=== PATIENT | female | born 1960 | race Caucasian/White ===

== ENCOUNTER → 2016-10-29 | Outpatient (CLI) | payer OTHER ==
[~2016-10-29] MED LIST: ACETAMINOPHEN-1 EAC1 PO; ADIPEX-P37.5 M1 PO; IBUPROFEN 800800 MG PO; MIGRAINE MEDICINE; NORCO 5-325 TA1 EACH PO; PRILOSEC 20 MG20 MG PO; TOPAMAX50 MG PO
--- NOTE | ~2016-10-29 | S ---
[facility] [employer] [place] [address] SURGICAL PATH RPT PROCEDURE Name: CLEO FAY OSWALD Room #: REG [facility] M.R.#: [id number] Admission: 10/29/16 Date of : 58 Discharge: Report #: [id number] Path Case #: [id number] PATHOLOGY REPORT COLLECTION DATE: 10/29/2016 RECEIVED DATE: 10/29/2016 SUBMITTING PHYS: Dr. Yefri Persaud OTHER PHYS: Dr Lea Matthews SPECIMEN(S) RECEIVED: A.Polyp at rectum * * * * * * * * * * * * FINAL DIAGNOSIS: Polyp, at rectum, endoscopic biopsy: - Hyperplastic polyp. - Negative for dysplasia. (IUV:csd; d/t: 10/30/2016) PATHOLOGIST: Marizol Cain M.D. REPORT ELECTRONICALLY SIGNED BY: Marizol Cain M.D. DATE/TIME: 10/30/2016 13:23 * * * * * * * * * * * * GROSS PATHOLOGY: Received in formalin labeled "Cleo Fay, polyp at rectum," are two segments of gayle soft tissue measuring 0.5 x 0.5 x 0.1 cm in aggregate dimensions and ranging from 0.3 to 0.5 cm in maximum dimension. The specimen is submitted entirely in cassette A1. (CAA; 10/29/2016) CLINICAL HISTORY: Screening INITIAL CPT CODE(S): A; 71356 Professional services performed by [facility] at [facility] [address], [place] [address] Technical services performed by [facility] at [address] [place] [address], [address] [address]. [facility] [address] [place] [address] SURGICAL PATH RPT PROCEDURE Name: CLEO FAY OSWALD Room #: REG MICHAEL Padilla#: [id number] Admission: 10/29/16 Date of : 58 Discharge: Report #: [id number] Path Case #: [id number] [facility] [address] [address] PHONE: [phone] DIRECTOR: Ishan Fermin M.D. * * * END OF REPORT * * *
--- NOTE | ~2016-10-29 | P ---
[facility] [place] [address] PROCEDURE REPORT Name: VADIM CADET [facility]WALD [id number] Admission: 10/29/16 Attend Phys: Yefri Tian Discharge: Date of : 58 Report #: [id number] THIS REPORT FOR: //name// CC: Yefri Matthews MD DATE OF SERVICE: 10/29/2016 PROCEDURE PERFORMED: Colonoscopy with biopsies. HISTORY OF PRESENT ILLNESS: The patient is a 56-year-old female who presents today for a routine screening colonoscopy. She denies any symptoms. No family history of colon cancer. DESCRIPTION OF PROCEDURE: The risks and benefits of the procedure were explained to the patient, those risks including but not limited to bleeding, perforation and the risk of sedation. She understood these risks and gave informed consent. Sedation was given using propofol per anesthesia. Next, a digital rectal exam was initially performed, which was normal. Next, using a standard Fujinon colonoscope, the scope was placed in the patient's anus and advanced under direct vision to the cecum. The overall prep was excellent. The cecum and ileocecal valve were normal in appearance. Terminal ileum was intubated and normal in appearance. The ascending, transverse, descending and sigmoid colon were normal. In the rectum, there was a single 4-mm sessile polyp. This was removed with cold forceps, otherwise normal. On retroflexion, no abnormalities were noted. The scope was then withdrawn and the procedure terminated. The patient tolerated the procedure well. IMPRESSION: 1. Rectal polyp. 2. Otherwise, normal colonoscopy. RECOMMENDATIONS: 1. Await biopsy results. 2. If polyp is hyperplastic, repeat in 10 years; if adenomatous polyp, repeat in 5 years. Thank you for allowing me to participate in her care. <ELECTRONICALLY SIGNED> By: Yefri Persaud MD 10/29/16 1120 [id number] [id number] Yefri Persaud MD /nt
== END | disposition home or self-care (01) ==
LOC: GI 07:50
DX: Z12.11 Encounter for screening for malignant neoplasm of colon (principal); K62.1 Rectal polyp
CPT/HCPCS: 62110

== ENCOUNTER → 2017-11-07 | Outpatient (CLI) | payer OTHER | LOC: SLEEPLAB 10-25 08:26 | DX: G47.33 Obstructive sleep apnea (adult) (pediatric) (principal) ==

== ENCOUNTER → 2017-11-08 | Outpatient (CLI) | payer OTHER | LOC: CV 08:05 | DX: R91.1 Solitary pulmonary nodule (principal); J98.11 Atelectasis; R91.8 Other nonspecific abnormal finding of lung field ==

== ENCOUNTER → 2017-11-15 | Outpatient (CLI) | payer OTHER ==
--- NOTE | ~2017-11-15 | 2DMMODE ---
[facility] [address] [place] [address] 2 D/M-MODE ECHOCARDIOGRAM Name: CHICHIVADIM OSWALD Room #: REG [facility].#: [id number] Admission: 11/15/17 Attend Phys: Zee Owen Discharge: Date of : 58 Date of Service: 11/15/17 1216 Report #: [id number] THIS REPORT FOR: //name// APPROVED REPORT Study performed: 11/15/2017 11:21:25 EXAM: Comprehensive 2D, Doppler, and color-flow Echocardiogram Patient Location: Out-Patient Room #: Echo lab Status: routine BSA: 2.29 HR: 77 bpm BP: 138/82 mmHg Other Information Study Quality: Fair Indications Dyspnea Morbid obesity 2D Dimensions RVDd: 34.17 mm LVEF(%): 54.77 (>50%) IVSd: 11.01 (7-11mm) LVOT Diam: 19.87 (18-24mm) LVDd: 52.02 mm PWd: 10.82 (7-11mm) Ascending Ao: 32.32 (22-36mm) LVDs: 37.14 (25-40mm) Aortic Root: 32.84 mm Bray's LVEF: 54.77 % Volumes Left Atrial Volume (Systole) Single Plane 4CH: 40.64 mL Single Plane 2CH: 40.16 mL LA ESV Index: 20.00 mL/m2 Aortic Valve AoV Peak Bernardo.: 1.59 m/s AO Peak Gr.: 10.08 mmHg LVOT Max P.92 mmHg LVOT Max V: 0.99 m/s SHERIDAN Vmax: 1.93 cm2 Mitral Valve E/A Ratio: 1.2 MV Decel. Time: 174.47 ms [facility] [place] [address] 2 D/M-MODE ECHOCARDIOGRAM Name: VADIM CADET [facility] Room #: REG [facility].#: [id number] Admission: 11/15/17 Attend Phys: Zee Owen Discharge: Date of : 58 Date of Service: 11/15/17 1216 Report #: [id number] E Max Bernardo.: 0.84 m/s MV A Bernardo.: 0.72 m/s MV PHT: 50.60 ms IVRT: 73.82 ms Pulmonary Valve PV Peak Bernardo.: 0.95 m/s PV Peak Gr.: 3.62 mmHg Pulmonary Vein P Vein S: 0.50 m/s P Vein A: 0.27 m/s P Vein D: 0.42 m/s P Vein A Dur.: 115.3 msec P Vein S/D Ratio: 1.19 Left Ventricle The left ventricle is normal size. There is normal LV segmental wall motion. There is normal left ventricular wall thickness. The left ventricular systolic function is normal. The left ventricular ejection fraction is within the normal range. LVEF is 55-60%. Grade II - pseudonormal filling dynamics. Right Ventricle The right ventricle is normal size. The right ventricular systolic function is normal. Atria The left atrium size is normal. The right atrium size is normal. Aortic Valve The aortic valve is normal in structure. No aortic regurgitation is present. There is no aortic valvular stenosis. Mitral Valve The mitral valve is normal in structure. There is no mitral valve regurgitation noted. No evidence of mitral valve stenosis. Tricuspid Valve The tricuspid valve is normal in structure. There is no tricuspid valve regurgitation noted. Pulmonic Valve The pulmonary valve is normal in structure. There is no pulmonic valvular regurgitation. Great Vessels The aortic root is normal in size. IVC is not well [facility] [address] [place] [address] 2 D/M-MODE ECHOCARDIOGRAM Name: CHICHIVADIM [facility] Room #: REG [facility]#: [id number] Admission: 11/15/17 Attend Phys: Zee Owen Discharge: Date of : 58 Date of Service: 11/15/17 1216 Report #: [id number] visualized. Pericardium There is no pericardial effusion. <Conclusion> The left ventricular systolic function is normal. There is normal LV segmental wall motion. LVEF is 55-60%. Grade II diastolic dysfunction The aortic valve is normal in structure. No aortic regurgitation or stenosis The mitral valve is normal in structure. No mitral valve regurgitation noted. Pulmonary artery pressure could not be reliably ascertained There is no pericardial effusion. <ELECTRONICALLY SIGNED> By: Chidi Zepeda MD, [facility] 11/15/17 121 15 15 Chidi Zepeda MD, FACC /INF
== END ==
LOC: CV 11:04
DX: R06.00 Dyspnea, unspecified (principal); E66.01 Morbid (severe) obesity due to excess calories